=== PATIENT | male | born 1990 | race Caucasian/White ===

== ENCOUNTER 2021-06-27 00:54 | Emergency (ER) | payer OTHER ==
[~2021-06-27] VITALS: Ht 167.6 cm; Wt 56.7 kg
--- NOTE | 2021-06-27 01:00 | NUR ---
[facility] AND [employer] FOR FOUND PASSED OUT [facility] [place] W/ RR OF 4-6 PER MINUTE. PER [employer] PT ADMITTED ON TAKING FENTANYL. ACCORDING TO EMS A TOTAL OF 3MG NARCAN IV AND A DOSE OF ZOFRAN GIVEN COIL WINDER. PT AWAKE AND RESPONSIVE ON TRIAGE. BREATHING EVENLY. WAS PLACED IN BED 12 ER, ON MONITOR. VSS. PT DENIED SI AT THIS TIME. WILL CONT TO MONITOR
[2021-06-27 02:06] LABS: BASOPHILS # (AUTO) 0.1 K/uL (0.0-0.2); BASOPHILS % (AUTO) 0.4 % (0.0-2.0); EOSINOPHILS % (AUTO) 0.3 % (0.0-6.0); HEMATOCRIT 42 % (39-51); HEMOGLOBIN 13.7 g/dL (13.5-17.5); LYMPHOCYTES # (AUTO) 1.2 K/uL (0.8-4.8); LYMPHOCYTES % (AUTO) 7.5 % (20.0-44.0); MEAN CORPUSCULAR HGB CONC 33 g/dl (31.0-36.0); MEAN CORPUSCULAR VOLUME 87 fL (80-96); MONOCYTES % (AUTO) 6.4 % (2.0-12.0); NEUTROPHILS # (AUTO) 13.3 K/uL (1.8-8.9); NEUTROPHILS % (AUTO) 85.4 % (43.0-81.0); PLATELET COUNT (AUTO) 290 K/uL (150-450); RED BLOOD CELL COUNT(AUTO) 4.78 MIL/uL (4.5-6.0); WHITE BLOOD COUNT (AUTO) 15.5 K/uL (4.3-11.0)
[2021-06-27 02:09] LABS: CALCIUM, SERUM 8.2 mg/dL (8.5-10.1); CARBON DIOXIDE 24 mmol/L (21-32); CHLORIDE 101 mmol/L (98-107); CREATININE 1.4 mg/dL (0.6-1.3); GLUCOSE 145 mg/dL (74-106); POTASSIUM 3.3 mmol/L (3.5-5.1); SODIUM SERUM 139 mmol/L (136-145); UREA NITROGEN, BLOOD 28 mg/dL (7-18)
[2021-06-27 02:13] LABS: ALANINE AMINOTRANSFERASE 24 U/L (12-78); ALBUMIN 3.6 g/dL (3.4-5.0); ALCOHOL, BLOOD < 3 mg/dL (0-0); ALKALINE PHOSPHATASE 78 U/L (46-116); ASPARTATE AMINOTRANSFERASE 41 U/L (15-37); BILIRUBIN,DIRECT 0.2 mg/dL (0.0-0.2); BILIRUBIN,TOTAL 0.9 mg/dL (0.2-1.0); TOTAL PROTEIN, SERUM 9.4 g/dL (6.4-8.2)
[2021-06-27 02:17] LABS: ACETAMINOPHEN 0 ug/ml (10-30)
--- NOTE | 2021-06-27 02:58 | NUR ---
[facility] CCT CALLED FOR CODE STEMI.
--- NOTE | 2021-06-27 03:13 | NUR ---
CALL BACK FROM [facility]. PER DR AGUILAR NOT STEMI.
--- NOTE | 2021-06-27 03:49 | NUR ---
[facility]SA SWAB COLLECTED AND SENT TO LAB. PATIENT'S BELONGINGS LIST DONE.
[2021-06-27] MEDS ORDERED: IV NS 0.9% 1,000 ML BAG IV ONE (06:00)
[2021-06-27] MEDS ORDERED: NALO4SPR NS (06:18)
--- NOTE | 2021-06-27 07:41 | NUR ---
THE PATIENT IS RECEIVED IN ER BED #12. ALERT AND ORIENTED X3. DENIES PAIN. IN ROOM AIR AND DENIES SOB. RESPIRATION REGULAR AND UNLABORED. DENIES SI/HI. WILL CONTINUE TO MONITOR THE PATIENT.
--- NOTE | 2021-06-27 10:00 | NUR ---
DUNG SHARMA AT BEDSIDE
--- NOTE | 2021-06-27 10:13 | NUR ---
"SS Consult: SS consult for Overdose. Pt. Is a 31-year-old male. Pt. demonstrates adequate insight to the reason for hospitalization. Per pt., he was brought to hospital by ambulance. Pt. mentioned that the police found him passed out, OD on fentanyl. Pt. was oriented x2, alert, and cooperative. During interview, pt. was capable of following directions, but did not make appropriate eye-contact. Pt.'s speech was at a low rate. GABRIELA explored pt.'s Hx of mental health and substance abuse. Pt. reported no Hx of mental health, substance abuse, suicidal or homicidal. Pt. denies auditory hallucinations, visual hallucinations, paranoia, or delusions. Pt. has Hx of substance but did not clarified which drugs. GABRIELA explored pt.'s living situation. Per pt., he is homeless. Pt. mentioned that he has been homeless for about four years. Pt. does not go to any shelters. Per pt., he reports having no adequate support. Pt. expressed that he wants to go to a sober living and wants help. GABRIELA provided pt. with Bridge programs. Pt. asked to charge his phone, so he can contact the resources that were provided. Pt. chose and will reach out to [facility]: [address] [facility] [place] [address], . Pt. was willing to sign homeless waiver. GABRIELA placed waiver in pt.'s chart. Plan: GABRIELA provided available resources and pt. accepted. Once discharge, per pt., he will use the resources that were provided. Resources Provided: [facility]: [address] [place] [address] Intake hours: 5:45am-9:00am, walk-ins Saturday, Saturday, [facility]: [address] [place] [address] Intake hours: 5:45am-12:30pm, Saturday and [facility]: [id number] [place] [address] Intake hours: 8:00am-2:00pm, Saturday through [facility]undo Year-round shelters: [facility] [place] [address] [place] [address] ; [facility] [place] [address] [place] [address]; [facility] [address] [facility] [address] Winter Shelters: Sylvester Gaston [place] Provider: [facility] [place] Address: [address] [place], [address] # of Beds: 47 Population Served: [facility] 6 | [facility] Jillian Bhakta [place] Provider: [facility] Address: [address] [facility], [address] # of Beds: 66 Population Served: [facility] [place] Provider: [facility] Address: [address] [facility], [address] # of Beds: 56 Population Served: [facility] Tarik IngrisXimena [place] Provider: [facility] Address: [address] [facility], [address] # of Beds: 49 Population Served: [facility] 8 | [facility] Provider: [facility] Address: [address] [facility], [address] # of Beds: 37 Population Served: [facility] Hygiene: [place] [facility]: [address] [facility] ; [facility] [address] [facility] ; [facility] [address] [facility] [place] [facility] . Food Resources: [place] [facility] at [facility]- [address] [place]; Meet Each Need with Dignity ([facility]) [address] [place]; [facility] [address] [facility]; [facility] [address] [place]. Mental Health resources provided: [facility] [address] [facility], [place] [address] ; [facility] [address], [place] [address] ; [facility] Mental [facility] [address] [place] [address] ; [facility] [address] [place], [place] [id number] Healthcare Clinics: [facility] [address] [facility], [address] [place]. [place] ; [facility] [place] [address] [facility] [address] [place] [address]; [facility] [address] [facility] [place] [phone]) [phone] Counseling--Outpatient [facility] [address] [facility], [place] [address] (Specializes in in-depth psychotherapy for emotional distress: anxiety, depression, interpersonal conflicts, life transitions, childhood abuse) [facility] [address] [place] [address] (Assist with solving problem marital difficulties, separation & divorce, aging parents, & grief, chronic & terminal illness) [facility] [address] [place] [address] (Deal with loss & grief, anxiety, marital difficulties) Homebound/Mental Health Services [address], [address] [facility] [place] [address] (Provide in-home mental services to people who are incapable of leaving their homes) [facility] of [facility] Elderly Senior Service/Resource Center [address] [place] [address] [facility] [address] [facility] [address] [place] [address] PSYCHIATRIC OUTPATIENT SERVICES [facility] Partial Hospitalization and Intensive Outpatient Program (Managed Care and [place] Only)[address] [facility] [phone] [facility] Partial Hospitalization and Outpatient [address] [facility]. [address] [place], [place] [phone] [address] [facility] Health Llewellyn Wkc[address] [facility]. [address] [place], [place] [phone] [facility] [address] Partial Hospitalization and Outpatient [id number] Emelice [facility] [address], [phone] Substance Abuse resources provided included: [facility] Substance Abuse Self-Helpline ([facility]) ; [facility] [address] [facility]. [place] [address] ; [facility] Treatment [place] [address] [facility] [address] ; [facility] [address] [facility] [address] ; [facility] [address] [facility] [id number] ; [facility] 49[address] [facility] [address] ; [facility] [address] [facility] [phone] ; [facility] Substance Abuse Helpline([facility] ; [facility] ; Raym[facility] [place]; [facility] [place]; [facility] [address]; [facility]; [place] [place]; [facility] [place]; [facility] [place]; Alcoholics Anonymous -[facility]; Matthew ; Marijuana Anonymous -[facility]; Narcotics Anonymous [email or web address];"
--- NOTE | 2021-06-27 10:37 | NUR ---
The patient is alert and oriented x4. Denies pain. In room air and denies SOB. Respiration regular and unlabored. Denies SI/HI. IV removed. Catheter intact and site benign. Pressure and 4x4 applied to site. No bleeding noted.Patient discharged to home in stable condition. Written and verbal after care instructions given. Patient verbalizes understanding of instruction.
[2021-06-27 10:40] VITALS: BP 131/74
== END 2021-06-27 10:40 | disposition home or self-care (01) ==
LOC: ER 01:02
DX: T40.2X1A Poisoning by other opioids, accidental (unintentional), initial encounter (principal); R41.82 Altered mental status, unspecified; Y92.816 Subway car as the place of occurrence of the external cause; R94.31 Abnormal electrocardiogram [ECG] [EKG]; Z59.01 Sheltered homelessness; Z20.822 Contact with and (suspected) exposure to COVID-19; D72.829 Elevated white blood cell count, unspecified; F41.9 Anxiety disorder, unspecified
CPT/HCPCS: 36415; 71045; 80048; 80076; 80143; 80320; 84484 ×2; 85025; 87081; 87426; 93005; 96360; 99291; C9803; J7030; G0480